=== PATIENT | female | born 1985 | race Caucasian/White ===

== ENCOUNTER 2021-12-25 09:25 | Day surgery (SDC) | payer OTHER ==
[~2021-12-25] VITALS: Ht 165.1 cm; Wt 85.0 kg
[~2021-12-25 09:25] MED LIST: DEXAMETHASONE SOD PHOS 4 MG/ML VIAL ONE; HYDROmorphone 2 MG/ML INJ. IVP PRN; IV RINGERS,LACTATED 1000ML 1,000 ML IV SCH; LIDOCAINE 1%/EPI 1:100,000 20 ML VIAL. ONE; LIDOCAINE 2% PF 5 ML VIAL. ONE; MIDAZOLAM HCL/PF 2 MG/2 ML VIAL. ONE; MORPHINE SULFATE 2 MG/ML INJ. IVP PRN; ONDANSETRON PF 4 MG/2 ML VIAL. ONE; PROCHLORPERAZINE 10 MG/2 ML VIAL. IVP PRN; PROPOFOL 10 MG/ML (20ML) VIAL. IV ONE; SCOPOLAMINE 1.5MG PATCH. TD SCH; SEVOFLURANE 31 TO 60 MINUTES. IH ONE; fentaNYL PF VIAL 100 MCG/2 ML VIAL IVP PRN; fentaNYL PF VIAL 100 MCG/2 ML VIAL ONE
[2021-12-25 09:46] VITALS: BP 131/82
[2021-12-25] MEDS ORDERED: SERT100T PO (09:54)
--- NOTE | 2021-12-25 13:19 | PDOC4 ---
Operative Note Operative Note Operative Note: Preoperative Diagnosis: Left neck mass Postoperative Diagnosis: Same Procedure: Excision of left neck mass Surgeon: Denis Auditor/Quality: La Nena PULLIAM Anesthesia: General EBL: 10 mL Specimen: Left neck mass to pathology Drains: None Complications: None Indication: The patient is a 36-year-old female presented with a mass in the inferior aspect of the left neck midway to the shoulder. It has been bothersome and she requests excision. The risks of surgery were discussed which include bleeding, infection, nerve injury, recurrence, pain, anesthetic risk, potential need for additional surgery procedure. She understands and would like to proceed. Description: The patient was taken to the operating room and placed supine on the operating table. General anesthesia was performed. The left neck and shoulder were prepped with ChloraPrep and draped in a standard surgical manner. An incision was made directly overlying the mass. Cautery dissection was carried down the subcutaneous tissue. The mass was comprised of lobulated adipose tissue consistent with lipoma. Multiple lobules of the lipoma were mobilized from surrounding tissue and fully excised. There were several pieces however in total it measured 3 x 2 cm. The specimen was sent to pathology for evaluation. Hemostasis was achieved with cautery. The subcutaneous tissue was approximated with 3-0 Vicryl. The skin was closed with 4-0 Monocryl and infiltrated with half percent Marcaine with epinephrine. Steri-Strips and a sterile dressing were applied. The patient tolerated the procedure well and was sent to the recovery room in stable condition. At the end of the case all counts were correct. ANY BRYAN MD Dec 25, 2021 13:19
[2021-12-25] MEDS ORDERED: HYDR-2761 PO (13:21)
--- NOTE | 2021-12-25 13:28 | DISCH ---
DISCHARGE INSTRUCTIONS Condition on Discharge Condition on Discharge: Stable Activity After Discharge Activity Instructions for Disc: Activity as tolerated Diet after Discharge Diet after Discharge: Regular Wound Incision Care Wound/Incision Care: Other, see below (Keep dressing clean and dry X 72 hours, may then remove and shower) Follow-Up Follow up with: Dr Bryan in 2 weeks in office, call for appt [phone] ANY BRYAN MD Dec 25, 2021 13:28
[2021-12-25 14:15] VITALS: BP 125/80
[2021-12-25] MEDS ORDERED: HYDROcodone/APAP 5/325MG 1 TAB TABLET PO ONE (14:15)
--- NOTE | 2021-12-26 17:32 | PATHOLOGY ---
[facility] Accession Number: [id number] . 01 Material submitted: . neck - LEFT NECK MASS. Modifiers: left . 01 Clinical history: . LEFT NECK MASS EXCISION . 02 Diagnosis: Segments of adipose tissue, left neck mass excision: - Lipoma. (AYE:aubrie; 12/26/2021) MBR 12/26/2021 1408 Local . 02 Comment: There is no evidence of malignancy. (ESHAM:aubrie; 12/26/2021) . 02 Electronically signed: . Massimo Fuentes MD, Pathologist NPI- [id number] . 01 Gross description: . The specimen is received in formalin, labeled "Gloria Rizo, left neck mass" and the specimen consists of 3 fatty irregular tissues aggregating 3.5 x 2.5 x 0.7 cm. Sectioning reveals fatty homogenous cut surfaces without a discrete lesion. Control Room Helper sections are submitted in A1.(DIOMEDE; 12/25/2021) DKA/DKA 12/25/2021 1812 Local . 02 Pathologist provided ICD-10: D17.0 . 02 CPT . 073601 Specimen Comment: A courtesy copy of this report has been sent to [phone] Specimen Comment: Report sent to Performed at: 01 [facility] [address], [place] [id number] MD Kike Neil MD Phone: [phone] Performed at: 02 [facility] [address] [place], [place] [id number] MD Massimo Fuentes MD Phone: [phone]
== END 2021-12-25 14:37 | disposition home or self-care (01) ==
LOC: SURG 09:25
PROVIDERS: ATTEND Surgery
DX: R22.1 Localized swelling, mass and lump, neck (principal); F32.9 Major depressive disorder, single episode, unspecified; Z98.51 Tubal ligation status; Z98.890 Other specified postprocedural states; Z79.899 Other long term (current) drug therapy
CPT/HCPCS: 21552; 81025; A4364; A4930; A6219; J0690; J1100; J2250; J2405; J2704; J3010; J3490; 88304; A4452; A4657

== ENCOUNTER → 2022-04-10 | Outpatient (CLI) | payer OTHER ==
[~2022-04-10] MED LIST changes: -DEXAMETHASONE SOD PHOS 4 MG/ML VIAL ONE; +HYDR-2761 PO; -HYDROmorphone 2 MG/ML INJ. IVP PRN; -IV RINGERS,LACTATED 1000ML 1,000 ML IV SCH; -LIDOCAINE 1%/EPI 1:100,000 20 ML VIAL. ONE; -LIDOCAINE 2% PF 5 ML VIAL. ONE; -MIDAZOLAM HCL/PF 2 MG/2 ML VIAL. ONE; -MORPHINE SULFATE 2 MG/ML INJ. IVP PRN; -ONDANSETRON PF 4 MG/2 ML VIAL. ONE; -PROCHLORPERAZINE 10 MG/2 ML VIAL. IVP PRN; -PROPOFOL 10 MG/ML (20ML) VIAL. IV ONE; -SCOPOLAMINE 1.5MG PATCH. TD SCH; +SERT100T PO; -SEVOFLURANE 31 TO 60 MINUTES. IH ONE; -fentaNYL PF VIAL 100 MCG/2 ML VIAL IVP PRN; -fentaNYL PF VIAL 100 MCG/2 ML VIAL ONE
== END ==
LOC: LAB 12:59
PROVIDERS: ATTEND Physician Assistant Surgical
DX: F41.1 Generalized anxiety disorder (principal); R63.5 Abnormal weight gain
CPT/HCPCS: 36415; 84443